=== PATIENT | male | born 1935 | race Native Hawaiian/Other Pacific Islander ===

== ENCOUNTER 2017-06-04 09:23 | Outpatient (CLI) | payer OTHER | END 2017-06-04 09:29 | disposition short-term general hospital (02) | LOC: AMB 09:23 | DX: S62.604B Fracture of unspecified phalanx of right ring finger, initial encounter for open fracture (principal); R22.0 Localized swelling, mass and lump, head; S01.111A Laceration without foreign body of right eyelid and periocular area, initial encounter; I48.91 Unspecified atrial fibrillation; S80.212A Abrasion, left knee, initial encounter; S80.211A Abrasion, right knee, initial encounter; W18.39XA Other fall on same level, initial encounter; Y92.211 Elementary school as the place of occurrence of the external cause | CPT/HCPCS: A0425; A0427 ==